=== PATIENT | male | born 1950 | race Caucasian/White ===

== ENCOUNTER 2018-02-10 18:23 | Emergency (ER) | payer OTHER ==
[~2018-02-10] VITALS: Ht 170.2 cm; Wt 68.0 kg
[2018-02-10 18:23] VITALS: BP_SYST 149
--- NOTE | 2018-02-10 18:23 | NUR ---
BROUGHT IN BY [facility]. PT PLACED IN BED #5 AND TRIAGED. REPORT GIVEN TO RACHANA
--- NOTE | 2018-02-10 18:40 | NUR ---
patient arrived from home with c/o gi upset x 3 days. patient is AOx4 no complaints of pain at this time. no other complaints or injuries at this time.
--- NOTE | 2018-02-10 19:00 | NUR ---
Pt report received. Pt AAOx4, even and non-labored respirations, denies c/o pain or discomfort, no needs verbalized. Contact precautions remain in effect.
--- NOTE | 2018-02-10 19:05 | NUR ---
Dr. Dixon at bedside.
[2018-02-10] MEDS ORDERED: NACL 0.9% 1,000 ML IV ONE (19:15)
[2018-02-10 19:49] LABS: BASOPHILS % (AUTO) 0.6 % (0.0-2.0); EOSINOPHILS # (AUTO) 0.4 K/uL (0.0-0.4); EOSINOPHILS % (AUTO) 5.3 % (0.0-4.0); HEMATOCRIT 30.3 % (36-54); HEMOGLOBIN 10.3 g/dL (14.0-18.0); LYMPHOCYTES # (AUTO) 1.4 K/uL (1.0-5.5); LYMPHOCYTES % (AUTO) 18.8 % (20.5-51.5); MEAN CORPUSCULAR HEMOGLOBIN 29 pg (27-31); MEAN CORPUSCULAR HGB CONC 34 % (32-36); MEAN CORPUSCULAR VOLUME 84 fL (79.0-98.0); MONOCYTES % (AUTO) 13.9 % (1.7-9.3); NEUTROPHILS # (AUTO) 4.4 K/uL (1.8-7.7); NEUTROPHILS % (AUTO) 61.4 % (40.0-70.0); PLATELET COUNT (AUTO) 346 K/uL (130-430); RED CELL DISTRIBUTION WIDTH 15.1 % (9.0-15.0); WHITE BLOOD COUNT (AUTO) 7.2 K/uL (4.8-10.8)
--- NOTE | 2018-02-10 20:00 | NUR ---
Pt talking on cell phone. Denies c/o pain or discomfort, no needs verbalized.
[2018-02-10 20:03] LABS: CALCIUM 8.6 mg/dL (8.4-11.0); CREATININE 1.35 mg/dL (0.55-1.30); POTASSIUM 4.6 mmol/L (3.5-5.1)
[2018-02-10 20:10] LABS: ALBUMIN 2.2 g/dL (3.4-4.8); TOTAL BILIRUBIN 0.2 mg/dL (0.0-1.0)
--- NOTE | 2018-02-10 21:00 | NUR ---
Pt resting quietly, denies c/o pain or discomfort, no needs verbalized.
--- NOTE | 2018-02-10 22:00 | NUR ---
No needs verbalized at this time.
--- NOTE | 2018-02-10 22:28 | NUR ---
X-ray at bedside.
[2018-02-10 23:05] VITALS: BP_SYST 132
--- NOTE | 2018-02-10 23:05 | NUR ---
Patient given written and verbal discharge instructions and verbalizes understanding. ER MD discussed with patient the results and treatment provided. Patient in stable condition. ID arm band removed. IV catheter removed intact and dressing applied, no active bleeding. Rx of Zofran and Lomotil given. Patient educated on pain management and to follow up with PMD. Pain Scale 0/10. Opportunity for questions provided and answered. Medication side effect fact sheet provided.
== END 2018-02-10 23:05 | disposition home or self-care (01) ==
LOC: SED 18:23
DX: K52.9 Noninfective gastroenteritis and colitis, unspecified (principal); I48.91 Unspecified atrial fibrillation; E11.9 Type 2 diabetes mellitus without complications; I10 Essential (primary) hypertension; Z89.511 Acquired absence of right leg below knee
CPT/HCPCS: 36415; 74018; 80053; 85025; 93005; 99284; J7030